=== PATIENT | male | born 1990 | race Caucasian/White ===

== ENCOUNTER 2022-05-25 14:11 | Emergency (ER) | payer BC ==
[2022-05-25 14:52] LABS: #Eosinphils 0.1 thou/uL (0.0-0.7); #Lymphocytes 1.8 thou/uL (1.20-3.40); #Monocytes 0.5 thou/uL (0.11-0.59); #Neutrophils 4.1 thou/uL (1.40-6.50); %Basophils 0.5 % (0.0-1.0); %Eosinophils 1.3 % (0.0-10.0); %Lymphocytes 27.3 % (21.0-51.0); %Monocytes 7.2 % (0.0-10.0); %Neutrophils 63.7 % (42.0-75.0); Hemoglobin 16.2 g/dL (14.0-18.0); Mean Corpuscular HGB CONC 32.9 g/dL (32.0-36.0); Mean Corpuscular Hemoglobin 29.6 pg (27.0-31.0); Mean Platelet Volume 7.7 fL (7.4-10.4); Platelet Count 237 thou/uL (130-400); RBC Distribution Width 12.5 % (11.5-14.5); Red Blood Cell (RBC) Count 5.48 mill/uL (4.70-6.10); White Blood Cell (WBC) Count 6.5 thou/uL (4.8-10.8)
[2022-05-25 15:16] LABS: ALT (SGPT) 48 U/L (8-55); AST (SGOT) 27 U/L (5-34); Albumin 4.5 g/dL (3.5-5.0); Alkaline Phosphatase 59 U/L (40-110); Anion Gap 15 mmol/L (10-20); BUN (Urea Nitrogen) 10 mg/dL (8.9-20.6); Bilirubin, Total 0.9 mg/dL (0.2-1.2); Calc. Creatinine Clearance 0 mL/min (70-130); Calcium 9.7 mg/dL (7.8-10.44); Carbon Dioxide 24 mmol/L (22-29); Chloride 105 mmol/L (98-107); Estimated GFR 116; Globulin 3.2 g/dL (2.4-3.5); Glucose 100 mg/dL (70-105); Lipase 10 U/L (8-78); Potassium 4.1 mmol/L (3.5-5.1); Protein, Total 7.7 g/dL (6.0-8.3); Sodium 140 mmol/L (136-145)
== END 2022-05-25 17:02 | disposition home or self-care (01) ==
LOC: ERS 14:11
DX: R07.89 Other chest pain (principal)
CPT/HCPCS: 36415; 71045; 80053; 83690; 84484; 85025; 93005

== ENCOUNTER 2023-07-18 14:04 | Outpatient (CLI) | payer BC | END 2023-07-18 14:05 | disposition home or self-care (01) | LOC: RAD 14:04 | PROVIDERS: ATTEND Nurse Practitioner Family | DX: K21.9 Gastro-esophageal reflux disease without esophagitis (principal); R05.3 Chronic cough | CPT/HCPCS: 71046 ==

== ENCOUNTER 2023-08-09 09:01 | Outpatient (CLI) | payer BC | END 2023-08-09 09:02 | disposition home or self-care (01) | LOC: SCSMRI 09:01 | PROVIDERS: ATTEND Nurse Practitioner Family | DX: R05.3 Chronic cough (principal); R09.81 Nasal congestion; R42 Dizziness and giddiness; J34.1 Cyst and mucocele of nose and nasal sinus | CPT/HCPCS: 70553 ==

== ENCOUNTER 2023-08-26 20:31 | Emergency (ER) | payer BC ==
[2023-08-26] MEDS ORDERED: Morphine 4 MG/ML VIAL ONE (20:50)
[2023-08-26] MEDS ORDERED: Ketorolac Tromethamine 30 MG/ML VIAL ONE (20:50)
[2023-08-26 21:18] LABS: #Eosinphils 0.3 thou/uL (0.0-0.7); #Monocytes 0.6 thou/uL (0.11-0.59); #Neutrophils 2.8 thou/uL (1.40-6.50); %Basophils 0.4 % (0.0-1.0); %Lymphocytes 49.1 % (21.0-51.0); %Monocytes 7.7 % (0.0-10.0); %Neutrophils 38.5 % (42.0-75.0); Hematocrit 45.2 % (42.0-52.0); Hemoglobin 15.5 g/dL (14.0-18.0); Mean Corpuscular HGB CONC 34.3 g/dL (32.0-36.0); Mean Corpuscular Hemoglobin 29.4 pg (27.0-31.0); Mean Corpuscular Volume 85.8 fl (78.0-98.0); Mean Platelet Volume 9.7 fL (7.4-10.4); Platelet Count 267 10x3/uL (130-400); RBC Distribution Width 13.4 % (11.5-14.5); Red Blood Cell (RBC) Count 5.27 mill/uL (4.70-6.10); White Blood Cell (WBC) Count 7.3 10x3/uL (4.8-10.8)
[2023-08-26 21:42] LABS: ALT (SGPT) 59 U/L (8-55); AST (SGOT) 28 U/L (5-34); Albumin 4.5 g/dL (3.5-5.0); Alkaline Phosphatase 71 U/L (40-110); Anion Gap 14 mmol/L (10-20); BUN (Urea Nitrogen) 12 mg/dL (8.9-20.6); Bilirubin, Total 0.4 mg/dL (0.2-1.2); Calc. Creatinine Clearance 0 mL/min (70-130); Calcium 9.9 mg/dL (7.8-10.44); Carbon Dioxide 25 mmol/L (22-29); Chloride 106 mmol/L (98-107); Estimated GFR 114; Glucose 113 mg/dL (70-105); Lipase 11 U/L (8-78); Potassium 3.6 mmol/L (3.5-5.1); Protein, Total 7.5 g/dL (6.0-8.3); Sodium 141 mmol/L (136-145)
[2023-08-26 21:44] LABS: Troponin I Less than 0.010 ng/mL (< 0.028)
== END 2023-08-26 22:19 | disposition home or self-care (01) ==
LOC: ERS 20:31
DX: I10 Essential (primary) hypertension (principal)
CPT/HCPCS: 71045; 80053; 83690; 83735; 83880; 84484; 85025; 93005; 96374; 96375; J1885; J2270